=== PATIENT | male | born 2005 | race Caucasian/White ===

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

== ENCOUNTER 2025-03-06 22:34 | Emergency (ER) | payer OTHER ==
[~2025-03-06] VITALS: Ht 172.7 cm; Wt 66.7 kg
[~2025-03-06 22:34] MED LIST changes: +AMOCLA875 PO; +Pseudoephedrine30 MG PO
[2025-03-06 23:28] LABS: BASOPHILS ABSOLUTE AUTO 0.04 K/mm3 (0.00-0.23); BASOPHILS PERCENT AUTO 1 % (0-2); EOSINOPHILS ABSOLUTE AUTO 0.09 K/mm3 (0.00-0.68); EOSINOPHILS PERCENT AUTO 2 % (0-6); Hematocrit 47.6 % (37.0-53.0); Hemoglobin 16.5 g/dL (13.5-17.5); IMMATURE GRAN ABSOLUTE AUTO 0.02 K/mm3 (0.00-0.10); IMMATURE GRAN PERCENT AUTO 0 % (0-1); LYMPHOCYTES ABSOLUTE AUTO 2.08 K/mm3 (0.84-5.20); LYMPHOCYTES PERCENT AUTO 37 % (21-46); MONOCYTES ABSOLUTE AUTO 0.79 K/mm3 (0.16-1.47); MONOCYTES PERCENT AUTO 14 % (4-13); Mean Corpuscular HGB 31.2 pg (26.0-34.0); Mean Corpuscular HGB Conc 34.7 g/dL (31.5-36.5); Mean Corpuscular Volume 90 fL (80-100); NEUTROPHILS ABSOLUTE AUTO 2.59 K/mm3 (1.96-9.15); NEUTROPHILS PERCENT AUTO 46 % (41-73); Platelet Count 277 K/mm3 (150-400); RDW Coefficient Variation 12.3 % (11.7-14.2); RDW Standard Deviation 40.2 fL (35.1-46.3); Red Blood Cell Count 5.29 M/mm3 (4.30-5.90); White Blood Cell Count 5.61 K/mm3 (4.00-11.30)
[2025-03-06 23:51] LABS: Albumin/Globulin Ratio 1.1 (0.8-1.8); Bilirubin, Total 0.3 mg/dL (0.1-1.0); Bun/Creatinine Ratio 5.1 (12.0-20.0); Calcium, Blood 8.5 mg/dL (8.5-10.1); Creatinine, Blood 0.98 mg/dL (0.60-1.20); Globulin, Blood 3.6 g/dL (2.2-4.0); Potassium, Blood 3.7 mmol/L (3.5-5.5); Total Protein, Blood 7.6 g/dL (6.4-8.2)
[2025-03-07 00:36] LABS: Thyroid Stimulating Hormone 0.613 uIU/mL (0.360-4.800)
[2025-03-07 01:02] VITALS: BP 130/68
== END 2025-03-07 01:03 | disposition home or self-care (01) ==
LOC: ER 22:34
PROVIDERS: Emergency Medicine
DX: R42 Dizziness and giddiness (principal); Z79.899 Other long term (current) drug therapy; F17.290 Nicotine dependence, other tobacco product, uncomplicated; F17.210 Nicotine dependence, cigarettes, uncomplicated
CPT/HCPCS: 80053; 84443; 85025; 93005; 93010; 99284-25

== ENCOUNTER 2025-03-10 19:12 | Emergency (ER) | payer OTHER ==
[~2025-03-10] VITALS: Ht 172.7 cm; Wt 70.3 kg
[2025-03-10 19:22] VITALS: BP 134/57
== END 2025-03-10 19:56 | disposition home or self-care (01) ==
LOC: ER 19:12
DX: R07.9 Chest pain, unspecified (principal)
CPT/HCPCS: 93005; 93010; 99285-25

== ENCOUNTER 2025-05-23 12:39 | Emergency (ER) | payer OTHER ==
[~2025-05-23] VITALS: Ht 175.3 cm; Wt 68.0 kg
[2025-05-23 12:48] VITALS: BP 141/71
[2025-05-23] MEDS ORDERED: Lidocaine/Tetracaine/Epinephr 3 ML GEL SYRINGE TOP ONE ×2 (13:35)
[2025-05-23] MEDS ORDERED: CEPH500 PO (14:51)
== END 2025-05-23 15:00 | disposition home or self-care (01) ==
LOC: ER 12:39
DX: S01.81XA Laceration without foreign body of other part of head, initial encounter (principal); F17.290 Nicotine dependence, other tobacco product, uncomplicated; Z59.89 Other problems related to housing and economic circumstances; W01.198A Fall on same level from slipping, tripping and stumbling with subsequent striking against other object, initial encounter
CPT/HCPCS: 12013; 90471; 90715; 99282-25